=== PATIENT | female | born 1985 | race Caucasian/White ===

== ENCOUNTER 2016-10-15 17:04 | Emergency (ER) | payer OTHER ==
[2016-10-15 17:09] VITALS: BP 131/80; PULSE 68; TEMP 98.4; BMI 25.4
== END 2016-10-15 18:44 | disposition left against medical advice (07) ==
LOC: JER 17:04
DX: Z53.21 Procedure and treatment not carried out due to patient leaving prior to being seen by health care provider (principal)
CPT/HCPCS: 99281-25

== ENCOUNTER 2016-12-05 22:25 | Emergency (ER) | payer OTHER ==
[2016-12-05 22:34] VITALS: BP 127/72; PULSE 93; TEMP 98.1; BMI 26.4
--- NOTE | 2016-12-05 23:18 | PDOC ---
History of Present Illness - General History Source: Patient <DuanemarleneYan - Last Filed: 12/06/16 02:27> - General History Source: Patient, Old Records Exam Limitations: No Limitations - History of Present Illness Initial Comments: 12/05/16 23:30 The patient is a 31 year old female status post tumor removal and craniotomy on 11/21/16 who presents to the emergency department today for further evaluation of dizziness, high blood pressure, and swollen feet since this morning. The patient states that she has a home nurse who came by today and found the patient to be hypertonic. The patient states that after her tumor removal and craniotomy she was transferred to [facility] and has been following up regularly with [facility] The patient denies fever, chills, and sweats. The patient denies nausea, vomiting, and diarrhea. The patient denies chest pain, cough, and shortness of breath. PCP: Dr. Jessi Hopson [phone] PAST MEDICAL HISTORY: As per HPI PAST SURGICAL HISTORY: Craniotomy FAMILY HISTORY: No pertinent history reported SOCIAL HISTORY: None reported MEDICATIONS: Reviewed ALLERGIES: As per nursing notes <Bladimir Reardon - Last Filed: 12/06/16 02:36> - General Chief Complaint: Blood Pressure Problem Stated Complaint: POST OP PAIN Time Seen by Provider: 12/05/16 23:17 Past History - Past Medical History Asthma: No Cancer: No Cardiac Disorders: No Diabetes: No HTN: No Seizures: No Thyroid Disease: No - Immunization History Immunization Up to Date: No - Psycho/Social/Smoking Cessation Hx Anxiety: No Suicidal Ideation: No Smoking Status: No Smoking History: Never smoked Have you smoked in the past 12 months: No Number of Cigarettes Smoked Daily: 0 Hx Alcohol Use: No Drug/Substance Use Hx: No Hx Substance Use Treatment: No <Yan Alfonso - Last Filed: 12/06/16 02:27> <Bladimir Reardon - Last Filed: 12/06/16 02:36> - Past Medical History Allergies/Adverse Reactions: Allergies Allergy/AdvReac Type Severity Reaction Status Date / Time No Known Allergies Allergy Verified 12/05/16 22:31 Home Medications: Ambulatory Orders Ondansetron Injection [Zofran Injection] 4 mg IVPB Q4H PRN #0 vial 09/03/16 Review of Systems - Review of Systems Able to Perform ROS?: Yes Comments:: 12/05/16 23:31 CONSTITUTIONAL: Absent: fever, chills, diaphoresis, generalized weakness, malaise, loss of appetite HEENT: Absent: rhinorrhea, nasal congestion, throat pain, throat swelling, difficulty swallowing, mouth swelling, ear pain, eye pain, visual Changes CARDIOVASCULAR: Present: Dizziness, high blood pressure Absent: chest pain, syncope, palpitations, irregular heart rate, peripheral edema RESPIRATORY: Absent: cough, shortness of breath, dyspnea with exertion, orthopnea, wheezing, stridor, hemoptysis GASTROINTESTINAL: Absent: abdominal pain, abdominal distension, nausea, vomiting, diarrhea, constipation, melena, hematochezia GENITOURINARY: Absent: dysuria, frequency, urgency, hesitancy, hematuria, flank pain, genital pain MUSCULOSKELETAL: Present: bilateral foot swelling Absent: myalgia, arthralgia SKIN: Absent: rash, itching, pallor HEMATOLOGIC/IMMUNOLOGIC: Absent: easy bleeding, easy bruising, lymphadenopathy, frequent infections ENDOCRINE: Absent: unexplained weight gain, unexplained weight loss, heat intolerance, cold intolerance NEUROLOGIC: Absent: headache, focal weakness or paresthesias, dizziness, unsteady gait, seizure, mental status changes, bladder or bowel incontinence PSYCHIATRIC: Absent: anxiety, depression, suicidal or homicidal ideation, hallucinations. <Bladimir Reardon - Last Filed: 12/06/16 02:36> *Physical Exam - Vital Signs Last Vital Signs Temp Pulse Resp BP Pulse Ox 98.1 F 93 H 18 127/72 96 12/05/16 22:31 12/05/16 22:31 12/05/16 22:31 12/05/16 22:31 12/05/16 22:31 <Yan Alfonso - Last Filed: 12/06/16 02:27> - Vital Signs Last Vital Signs Temp Pulse Resp BP Pulse Ox 98.1 F 93 H 18 127/72 96 12/05/16 22:31 12/05/16 22:31 12/05/16 22:31 12/05/16 22:31 12/05/16 22:31 - Physical Exam Comments: 12/05/16 23:31 GENERAL: Well developed, well nourished. Awake and alert. In no acute distress. HEENT: No nystagmus, Normocephalic, atraumatic. PERRLA, EOMI. No conjunctival pallor. Sclera are non-icteric. Moist mucous membranes. Oropharynx is clear. NECK: Supple. Full ROM. No JVD. Carotid pulses 2+ and symmetric, without bruits. No thyromegaly. No lymphadenopathy. CARDIOVASCULAR: Regular rate and rhythm. No murmurs, rubs, or gallops. Distal pulses are 2+ and symmetric. PULMONARY: No evidence of respiratory distress. Lungs clear to auscultation bilaterally. No wheezing, rales or rhonchi. ABDOMINAL: Soft. Non-tender. Non-distended. No rebound or guarding. No organomegaly. Normoactive bowel sounds. MUSCULOSKELETAL Normal range of motion at all joints. No bony deformities or tenderness. No CVA tenderness. EXTREMITIES: No cyanosis. No clubbing. No edema. No calf tenderness. SKIN: Warm and dry. Normal capillary refill. No rashes. No jaundice. NEUROLOGICAL: Alert, awake, appropriate. Cranial nerves 2-12 intact. No deficits to light touch and temperature in face, upper extremities and lower extremities. No motor deficits in the in face, upper extremities and lower extremities. Normoreflexic in the upper and lower extremities. Normal speech. Toes are downgoing bilaterally. Gait is normal without ataxia. PSYCHIATRIC: Cooperative. Good eye contact. Appropriate mood and affect. <Bladimir Reardon - Last Filed: 12/06/16 02:36> ED Treatment Course - LABORATORY CBC & Chemistry Diagram: 12/05/16 23:42 12/05/16 23:42 <Yan Alfonso - Last Filed: 12/06/16 02:27> - LABORATORY CBC & Chemistry Diagram: 12/05/16 23:42 12/05/16 23:42 - RADIOLOGY Radiograph Interpretation: 12/06/16 02:35 Comparison made to the provided prior evaluation dated 11/03/2015 There is focal hypodensity with marginal calcifications at the base of the left temporal lobe (axial images 6-7), uncertain if post-p change vs. residual or recurrence of the tumor documented on the prior; suggest comparison with more recent prior post-op studies for further evaluation. No intra/extra-axial hemorrhage, gross vasogenic edema/focal mass effect or CT evidence of acute infarction; no ventriculomegaly. The visualized portions of the paranasal sinuses, orbits and tympanomastoid cavities are unremarkable. <Bladimir Reardon - Last Filed: 12/06/16 02:36> Medical Decision Making - Medical Decision Making 12/06/16 02:27 Dr. Alfonso: The scribe's documentation has been prepared under my direction and personally reviewed by me in its entirery. I confirm that the note above accurately reflects all work, treatment, procedures, and medical decision making performed by me. All studies including CT of the brain and return to be negative. Patient advised to follow-up with her doctors when normally scheduled <Yan Alfonso - Last Filed: 12/06/16 02:27> *DC/Admit/Observation/Transfer - Discharge Dispostion Admit: No <Yan Alfonso - Last Filed: 12/06/16 02:27> - Attestations Scribe Attestion: 12/05/16 23:32 Documentation prepared by Bladimir Reardon, acting as medical services manager for Yan Alfonso MD. <Bladimir Reardon - Last Filed: 12/06/16 02:36> Diagnosis at time of Disposition: Headache Qualifiers: Headache type: unspecified Headache chronicity pattern: unspecified pattern Intractability: not intractable Qualified Code(s): R51 - Headache - Discharge Dispostion Disposition: HOME Condition at time of disposition: Stable - Referrals Referrals: Jessi Benjamin MD [Primary Care Provider] - - Patient Instructions Printed Discharge Instructions: How to Monitor Your Blood Pressure at Home Additional Instructions: Please continue taking all your current medications. Follow up with your doctors as normally scheduled Print Language: GREEK
[2016-12-05] MEDS ORDERED: MECLIZINE HCL 25 MG TABLET (FP) PO STA (23:20)
[2016-12-05] MEDS ORDERED: MECLIZINE HCL 25 MG TABLET (FP) ONE (23:26)
[2016-12-06 00:03] LABS: MCH 28.6 pg (25.7-33.7); MCHC 33.2 g/dl (32.0-36.0); MEAN CELL VOLUME 86.1 fl (80-96); MEAN PLT VOLUME 6.9 fl (7.5-11.1); PLATELET COUNT 376 K/MM3 (134-434); RDW 13.6 % (11.6-15.6); WHITE BLOOD COUNT 9.2 K/mm3 (4.0-10.0)
[2016-12-06 00:08] LABS: URINE APPEARANCE CLEAR; URINE BILIRUBIN NEGATIVE (NEGATIVE); URINE BLOOD NEGATIVE (NEGATIVE); URINE COLOR LTYELLOW; URINE GLUCOSE (UA) NEGATIVE (NEGATIVE); URINE KETONE NEGATIVE (NEGATIVE); URINE LEUK ESTERASE NEGATIVE (NEGATIVE); URINE NITRITE NEGATIVE (NEGATIVE); URINE PROTEIN NEGATIVE (NEGATIVE); URINE UROBILINOGEN NEGATIVE E.U./dl (0.2-1.0)
[2016-12-06 00:18] LABS: INR 0.87 (0.82-1.09); PROTHROMBIN TIME (PATIENT) 9.5 SEC (9.98-11.88)
[2016-12-06 00:25] LABS: ALBUMIN 3.2 g/dl (3.4-5.0); ANION GAP 10 (8-16); BILIRUBIN,TOTAL 0.5 mg/dL (0.2-1.0); CALCIUM 8.1 mg/dL (8.5-10.1); CO2 30 mmol/L (21-32); CREATININE 0.5 mg/dL (0.55-1.02); GLUCOSE,RANDOM 116 mg/dL (74-106); SGOT/AST 7 U/L (15-37); SGPT/ALT 20 U/L (12-78); TOT PROT 5.9 g/dl (6.4-8.2)
[2016-12-06 00:26] LABS: ALK PHOS 64 U/L (45-117)
== END 2016-12-06 02:36 | disposition home or self-care (01) ==
LOC: JER 22:25
DX: R51 Headache (principal); Z98.890 Other specified postprocedural states
CPT/HCPCS: 36415; 70450-TC; 80053; 81003; 84703; 85025; 85610; 86850; 86900; 86901; 99282-25

== ENCOUNTER 2017-01-09 08:17 | Day surgery (SDC) | payer OTHER ==
[2017-01-08 09:21] VITALS: BMI 27.0
[2017-01-09] MEDS ORDERED: PROPOFOL 20 ML ONE ×2 (09:14)
[2017-01-09] MEDS ORDERED: ROCURONIUM BROMIDE 50 MG/5 ML VIAL ONE ×2 (09:14→10:32)
[2017-01-09] MEDS ORDERED: MIDAZOLAM HCL 2 MG/2 ML SINGLE DOSE VIAL ONE (09:14)
[2017-01-09] MEDS ORDERED: TETRACAINE/BENZOCAINE/BUTAMBEN 20 GM SPR TP ONE (09:28)
[2017-01-09] MEDS ORDERED: ceFAZolin SODIUM 1 GM VIAL ONE (10:00)
[2017-01-09] MEDS ORDERED: ceFAZolin SODIUM 1 GM VIAL IVPB ONE (10:08)
[2017-01-09] MEDS ORDERED: DEXAMETHASONE SOD PHOSPHATE 4 MG/1 ML VIAL ONE (10:08)
[2017-01-09] MEDS ORDERED: KETOROLAC TROMETHAMINE 30 MG/1 ML VIAL ONE (10:08)
[2017-01-09] MEDS ORDERED: ePHEDrine SULFATE 50 MG/1 ML AMPULE ONE (10:21)
[2017-01-09] MEDS ORDERED: BUPIVACAINE HCL/PF 0.5% (5MG/ML) 10 ML VIAL IJ ONE (10:25)
[2017-01-09] MEDS ORDERED: oxyCODONE HCL 5 MG TABLET PO PRN (11:08)
[2017-01-09] MEDS ORDERED: ONDANSETRON 4 MG/2 ML VIAL IVPUSH PRN (11:08)
[2017-01-09] MEDS ORDERED: LACTATED RINGERS SOLUTION 1,000 ML IV SCH (11:15)
[2017-01-09] MEDS ORDERED: GLYCOPYRROLATE 0.2 MG/1 ML VIAL ONE (11:42)
[2017-01-09] MEDS ORDERED: PHENYLEPHRINE HCL 10 MG/1 ML SINGLE DOSE VIAL ONE (11:42)
[2017-01-09] MEDS ORDERED: NEOSTIGMINE METHYLSULFATE 0.5 MG/ML - 10 ML MDV ONE (11:42)
--- NOTE | 2017-01-09 12:04 | OP ---
Operative Note - Note: Operative Date: 01/09/17 Pre-Operative Diagnosis: umbilical hernia Operation: Robotic laparoscopic umbilical hernia repair with mesh Post-Operative Diagnosis: Same as Pre-op Surgeon: Aaron Buck Courier: Pallavi Lai Anesthesiologist/BLADDER CHANGER: Deb Cardoza Anesthesia: General Estimated Blood Loss (mls): 15 Fluid Volume Replaced (mls): 1,500 Operative Report Dictated: Yes
--- NOTE | 2017-01-09 12:05 | SURG ---
Surgery Cone Machine Operator Note Cone Machine Operator: Pallavi Lai PA-C Date of Service: 01/09/17 Diagnosis: umbilical hernia Procedure: Robotic laparoscopic umbilical hernia repair with mesh I was present for the entirety of the operative procedure. For further detail, please refer to operative report. Visit type - Case Type Case Type: Scheduled Admission - Emergency Emergency Visit: No - New patient This patient is new to me today: Yes Date on this admission: 01/09/17 - Critical Care Critical Care patient: No
[2017-01-09 14:00] VITALS: TEMP 98
[2017-01-09] MEDS ORDERED: ONDANSETRON 4 MG/2 ML VIAL ONE (14:19)
[2017-01-09 15:00] VITALS: BP 106/70; PULSE 65
--- NOTE | 2017-01-10 13:20 | OP ---
DATE OF OPERATION: 01/09/2017 PROCEDURE: Robotic-assisted laparoscopic umbilical hernia repair with mesh. PREOPERATIVE DIAGNOSIS: Umbilical hernia. POSTOPERATIVE DIAGNOSIS: Umbilical hernia. SURGEON: Aaron Buck MD CNC OPERATOR PROGRAMMER: SKYE Damian ANESTHESIA: General endotracheal. FINDINGS AND PROCEDURE: This is a 31-year-old female who presents with a longstanding history of an umbilical bulge following . On physical exam, the patient has a 3-cm umbilical defect with partially-reducible preperitoneal fat. So patient was advised elective repair of the hernia, and consent was obtained after discussing the risks, benefits and alternatives to the procedure. Patient was brought to the operating room and placed in supine position. General endotracheal anesthesia was administered. The abdomen was prepped and draped in the usual sterile fashion. A roll was placed on the patient's left flank. The peritoneal cavity was accessed using the Veress needle technique via an 8-mm incision at the left subcostal region at the anterior axillary line. The pneumoperitoneum was established. An 8-mm port was inserted and the 3D 30-degree scope was inserted. The peritoneal cavity was carefully inspected and was noted to be free of inadvertent injury. The umbilical area was inspected and was noted to contain multiple moderate amount of preperitoneal fat. Two 8-mm ports were then inserted, 1 at the level of umbilicus at the posterior axillary line, and 1 at the left lower quadrant at the anterior axillary line. The target organ was set and the robotic arms were docked. The scope was now reinserted at the middle port and a fenestrated bipolar was inserted at the left lower quadrant port. The EndoWrist gustavo connected to monopolar cautery was inserted at the left upper quadrant port, or left subcostal port. The undersigned then scrubbed out to commence the console part of the procedure. The parietal peritoneum was scored about 5 cm away from the umbilical defect and initially the posterior rectus sheath was inadvertently taken down, and after it was detected, the space between the peritoneum and the posterior rectus sheath was opened and this proceeded with the creation of a preperitoneal space using the EndoWrist gustavo. A pocket of about 10 x 15 cm was made with dissection carried on the opposite side of the hernia defect. The preperitoneal fat containing the hernia was then taken down sharply to expose the 3-cm umbilical defect. The umbilical defect was then closed with V-Loc number 1 nonabsorbable suture. After this was done, a 10 x 12 cm ProGrip mesh was deployed to reinforce the umbilical hernia repair. After the deployment was deemed satisfactory, the pocket was then closed with running V-Loc 2-0 absorbable sutures. The peritoneal cavity was then carefully inspected and was noted to be free of active bleeding or any inadvertent injury. The instruments were removed and the robotic arms were undocked. The pneumoperitoneum was evacuated and the ports wounds were closed with subcuticular Biosyn 4-0 sutures reinforced with Dermabond. The patient was successfully extubated and transferred to the post-anesthesia care unit in satisfactory condition. Estimated blood loss was about 5 mL. Wound class clean. The patient received 1 g of Ancef prior to the start of the procedure. Elvia [id number]
== END 2017-01-09 15:00 | disposition home or self-care (01) ==
LOC: JASU-SURG 08:17
PROVIDERS: ATTEND Surgery
PROC: 8E0W4CZ Robotic Assisted Procedure of Trunk Region, Percutaneous Endoscopic Approach (ICD-10-PCS; 2017-01-09)
PROC: 0WUF4JZ Supplement Abdominal Wall with Synthetic Substitute, Percutaneous Endoscopic Approach (ICD-10-PCS; principal; 2017-01-09 10:30)
DX: K42.9 Umbilical hernia without obstruction or gangrene (principal)
CPT/HCPCS: 49652; S2900; 84703; 94760

== ENCOUNTER 2022-08-01 09:00 | Inpatient (IN) | payer OTHER ==
[2022-08-01] MEDS ORDERED: OXYTOCIN 30 UNITS in 0.9% NS 30 UNIT/500 ML INFUS.BAG IVPB ONE (09:32)
[2022-08-01] MEDS ORDERED: ELECTROLYTE-148 SOLN 1,000 ML IV SCH (09:45)
[2022-08-01] MEDS ORDERED: OXYTOCIN 30 UNITS in 0.9% NS 30 UNIT/500 ML INFUS.BAG IVPB SCH (09:45)
[2022-08-01 10:34] LABS: BASO % 0.3 % (0-2.0); EOS % 0.2 % (0-4.5); HEMATOCRIT 37.1 % (32.4-45.2); HEMOGLOBIN 12.1 GM/dL (10.7-15.3); LYMPH % 15.8 % (8-40); MCH 29.3 pg (25.7-33.7); MCHC 32.5 g/dl (32.0-36.0); MEAN PLT VOLUME 9.4 fl (7.5-11.1); MONO % 6.6 % (3.8-10.2); NEUT % 77.1 % (42.8-82.8); PLATELET COUNT 254 10^3/uL (134-434); RBC 4.12 M/mm3 (3.60-5.2); WHITE BLOOD COUNT 7.8 K/mm3 (4.0-10.0)
[2022-08-01 10:41] LABS: INR 0.87 (0.83-1.09)
[2022-08-01 11:00] LABS: CALCIUM 9.1 mg/dL (8.5-10.1)
[2022-08-01 11:01] LABS: BLOOD UREA NITROGEN 10.4 mg/dL (7-18)
[2022-08-01 11:04] LABS: CREATININE 0.5 mg/dL (0.55-1.3)
[2022-08-01 11:30] VITALS: BMI 35.3
[2022-08-01] MEDS ORDERED: OXYTOCIN 20 UNITS in 0.9% NS 20 UNIT/1,000 ML INFUS.BAG IV ONE (12:53)
[2022-08-01] MEDS ORDERED: BENZOCAINE 20% 57 GM BOTTLE TP PRN (13:46)
[2022-08-01] MEDS ORDERED: ACETAMINOPHEN 325 MG TABLET (FP) PO PRN (13:46)
[2022-08-01] MEDS ORDERED: WITCH HAZEL 50% (TUCKS) 40 PAD/JAR PAD TP PRN (13:46)
[2022-08-01] MEDS ORDERED: METHYLERGONOVINE MALEATE 0.2 MG/1 ML AMP IM PRN (13:46)
[2022-08-01] MEDS ORDERED: IBUPROFEN 600 MG TABLET (FP) PO PRN (13:46)
[2022-08-01] MEDS ORDERED: BENZOCAINE 28 GM HEMORRHOIDAL OINTMENT TP PRN (13:46)
[2022-08-01] MEDS ORDERED: oxyCODONE HCL 5 MG TABLET PO PRN (13:46)
[2022-08-01] MEDS ORDERED: BISACODYL 10 MG SUPP.RECT RC PRN (13:46)
[2022-08-01] MEDS ORDERED: METHYLERGONOVINE MALEATE 0.2 MG/1 ML AMP IM ONE (13:47)
[2022-08-01] MEDS ORDERED: OXYTOCIN 20 UNITS in 0.9% NS 20 UNIT/1,000 ML INFUS.BAG IV SCH (14:00)
[2022-08-01 14:40] LABS: CORD BASE EXCESS -6.8 mmol/L (0-2); CORD HCO3 23.4 mmHg (20-29); CORD PCO2 66.8 mmHg (30-78); CORD pH 7.163 (7.14-7.44)
[2022-08-01 14:43] LABS: CORD BASE EXCESS -3.2 mmol/L (0-2); CORD HCO3 22.8 mmHg (20-29); CORD PCO2 44.2 mmHg (30-78); CORD pH 7.331 (7.14-7.44)
[2022-08-02 09:30] LABS: BASO % 0.3 % (0-2.0); EOS % 0.5 % (0-4.5); HEMATOCRIT 36.1 % (32.4-45.2); HEMOGLOBIN 12.4 GM/dL (10.7-15.3); LYMPH % 15.4 % (8-40); MCH 30.7 pg (25.7-33.7); MCHC 34.2 g/dl (32.0-36.0); MEAN CELL VOLUME 89.6 fl (80-96); MEAN PLT VOLUME 8.7 fl (7.5-11.1); MONO % 5.7 % (3.8-10.2); NEUT % 78.1 % (42.8-82.8); PLATELET COUNT 234 10^3/uL (134-434); RBC 4.03 M/mm3 (3.60-5.2); RDW 14.8 % (11.6-15.6); WHITE BLOOD COUNT 10.2 K/mm3 (4.0-10.0)
[2022-08-02 10:48] VITALS: RESP 16
[2022-08-02] MEDS ORDERED: SENNOSIDES/DOCUSATE COMBO (SENNA PLUS) TABLET (UD) PO PRN (22:00)
[2022-08-03 09:59] VITALS: BP 127/66; PULSE 63; TEMP 97.9
== END 2022-08-03 13:45 | disposition home or self-care (01) | DRG 560 ==
LOC: JLDR 09:00 → J3W 15:50
PROVIDERS: ADMIT Obstetrics & Gynecology; ATTEND Obstetrics & Gynecology
PROC: 10E0XZZ Delivery of Products of Conception, External Approach (ICD-10-PCS; principal; 2022-08-01)
DX: O36.63X0 Maternal care for excessive fetal growth, third trimester, not applicable or unspecified (principal); O99.214 Obesity complicating childbirth; E66.9 Obesity, unspecified; Z86.011 Personal history of benign neoplasm of the brain; Z3A.39 39 weeks gestation of pregnancy; Z37.0 Single live birth
CPT/HCPCS: 36415; 36600; 59409; 80048; 82803; 85025; 85610; 85730; 86780; 86850; 86900; 86901; C9803-CS; U0003; U0005